=== PATIENT | female | born 1990 | race Asian ===

== ENCOUNTER 2018-01-07 19:40 | Emergency (ER) | payer OTHER, BC ==
[~2018-01-07] VITALS: Ht 154.9 cm; Wt 69.5 kg
[2018-01-07 19:44] VITALS: BP 139/78; PULSE 95; TEMP 98.3
== END 2018-01-07 21:21 | disposition home or self-care (01) ==
LOC: COL.ER 19:40
DX: S09.90XA Unspecified injury of head, initial encounter (principal); S39.012A Strain of muscle, fascia and tendon of lower back, initial encounter; Z88.0 Allergy status to penicillin; V43.52XA Car driver injured in collision with other type car in traffic accident, initial encounter

== ENCOUNTER 2020-09-15 07:05 | Day surgery (SDC) | payer OTHER ==
[~2020-09-15] VITALS: Ht 154.9 cm; Wt 75.4 kg
[2020-09-15 07:30] VITALS: BP 129/90; PULSE 85; TEMP 97.5
[2020-09-15 08:25] VITALS: BP 119/84; PULSE 79; TEMP 97.7
--- NOTE | 2020-09-15 08:25 | NUR ---
Pt to [facility] via cart from ENDO. Pt drowsy, but awakens easily to name call. Pt ambulates to recliner with stand by assistance. Warm blanket provided. Water and toast given per pt request. Pt c/o "cramps" to abdomen. Encouraged pt to pass gas to get rid of extra air used during the procedure. Pt voices understanding. Pt denies nausea. Call light within reach.
[2020-09-15 08:40] VITALS: BP 122/76; PULSE 68
--- NOTE | 2020-09-15 08:40 | NUR ---
Pt continues to rest. Tolerating food and fluids without difficulties. Call light within reach.
[2020-09-15 08:55] VITALS: BP 114/70; PULSE 73
--- NOTE | 2020-09-15 08:55 | NUR ---
Pt denies needs. More water given. Will continue to monitor.
[2020-09-15 09:10] VITALS: BP 116/81; PULSE 67
--- NOTE | 2020-09-15 09:10 | NUR ---
Discharge instructions reviewed. Pt voices understanding. IV site discontinued with all parts intact. Pt up to dress. Call light within reach.
--- NOTE | 2020-09-15 09:20 | NUR ---
Pt escorted to private car via wheel chair. Pt accompanied home by her friend.
== END 2020-09-15 09:20 | disposition home or self-care (01) ==
LOC: SDCO 07:05
DX: D50.9 Iron deficiency anemia, unspecified (principal); K92.1 Melena; Z88.1 Allergy status to other antibiotic agents; F41.9 Anxiety disorder, unspecified; F32.9 Major depressive disorder, single episode, unspecified; Z20.822 Contact with and (suspected) exposure to COVID-19
CPT/HCPCS: J2704; J7120